=== PATIENT | female | born 1975 | race American Indian/Alaskan Native ===

== ENCOUNTER 2017-01-02 03:30 | Inpatient (IN) | payer MEDICAID ==
[2017-01-02 04:07] LABS: Basophils % (Auto) 0.7 % (0.0-1.8); Eosinophils % (Auto) 3.7 % (0.0-4.3); Hematocrit 37.4 % (30.3-42.9); Hemoglobin 12.3 gm/dl (10.1-14.3); Mean Corpuscular HGB Conc 33 % (30-34); Mean Corpuscular Hemoglobin 30 pg (28-32); Mean Corpuscular Volume 89 fl (79-97); Platelet Count 346 K/mm3 (140-440); Red Blood Count 4.18 M/mm3 (3.65-5.03); Red Cell Distribution Width 15.4 % (13.2-15.2); White Blood Count 8.7 K/mm3 (4.5-11.0)
[2017-01-02 04:42] LABS: Anion Gap 19 mmol/L; BUN/Creatinine Ratio 14; Blood Urea Nitrogen 7 mg/dL (7-17); Calcium 8.4 mg/dL (8.4-10.2); Carbon Dioxide 22 mmol/L (22-30); Chloride 102.3 mmol/L (98-107); Glucose 112 mg/dL (65-100); Potassium 3.7 mmol/L (3.6-5.0); Sodium 140 mmol/L (137-145)
[2017-01-02] MEDS ORDERED: DUONEB *Not for PRN Use IH ONE (04:48)
--- NOTE | 2017-01-02 04:54 | Emergency Department Report ---
ED Shortness of Breath HPI - General Chief Complaint: Adult Asthma Stated Complaint: DIFFICULTY IN BREATHING Time Seen by Provider: 01/02/17 04:52 Source: patient, EMS Mode of arrival: Stretcher Limitations: No Limitations - History of Present Illness MD Complaint: shortness of breath, "asthma attack" -: Sudden Severity: severe Consistency: constant Improves With: oxygen, rest, bronchodilators, upright position Worsens With: lying flat, coughing Known History Of: COPD, asthma Context: recent URI Associated Symptoms: cough Treatments Prior to Arrival: oxygen, bronchodilator, other (EMS gave mag run) - Related Data Home Oxygen Therapy: No Allergies Allergy/AdvReac Type Severity Reaction Status Date / Time No Known Allergies Allergy Verified 01/02/17 04:55 ED Review of Systems ROS: Stated complaint: DIFFICULTY IN BREATHING Other details as noted in HPI Constitutional: see HPI, weakness Eyes: as per HPI ENT: as per HPI Respiratory: see HPI, shortness of breath, SOB with exertion, SOB at rest, wheezing Cardiovascular: as per HPI Endocrine: no symptoms reported Gastrointestinal: as per HPI Genitourinary: as per HPI Musculoskeletal: as per HPI Skin: as per HPI Neurological: as per HPI Psychiatric: as per HPI Hematological/Lymphatic: as per HPI ED Past Medical Hx - Past Medical History Previous Medical History?: Yes Hx Psychiatric Treatment: Yes (depression) Hx Asthma: Yes - Surgical History Past Surgical History?: No - Social History Smoking Status: Never Smoker Substance Use Type: None ED Physical Exam - General Limitations: No Limitations General appearance: alert, in distress - Head Head exam: Present: atraumatic, normocephalic - Eye Eye exam: Present: normal appearance, PERRL, EOMI - ENT ENT exam: Present: mucous membranes moist - Neck Neck exam: Present: normal inspection - Respiratory Respiratory exam: Present: respiratory distress, wheezes, rhonchi - Cardiovascular Cardiovascular Exam: Present: regular rate, normal rhythm. Absent: systolic murmur, diastolic murmur, rubs, gallop - GI/Abdominal GI/Abdominal exam: Present: soft, normal bowel sounds - Extremities Exam Extremities exam: Present: normal inspection - Back Exam Back exam: Present: normal inspection - Neurological Exam Neurological exam: Present: alert, oriented X3 - Psychiatric Psychiatric exam: Present: normal affect, normal mood - Skin Skin exam: Present: warm, dry, intact, normal color. Absent: rash ED Course Vital Signs 01/02/17 01/02/17 01/02/17 04:23 04:30 04:41 Temperature 98.4 F Pulse Rate 83 77 Pulse Rate [ Anterior Bilateral Throughout] Respiratory 19 14 Rate Respiratory Rate [Anterior Bilateral Throughout] Blood Pressure 163/100 Blood Pressure 149/97 [Left] O2 Sat by Pulse 99 98 99 Oximetry 01/02/17 01/02/17 04:53 05:00 Temperature Pulse Rate 88 Pulse Rate [ 90 Anterior Bilateral Throughout] Respiratory 17 Rate Respiratory 14 Rate [Anterior Bilateral Throughout] Blood Pressure 159/91 Blood Pressure [Left] O2 Sat by Pulse 95 Oximetry ED Medical Decision Making - Lab Data Result diagrams: 01/02/17 03:52 01/02/17 03:52 - EKG Data -: EKG Interpreted by Me EKG shows normal: sinus rhythm Rate: normal - EKG Data Interpretation: no acute changes, normal EKG - Radiology Data Radiology results: image reviewed - Medical Decision Making Hospitalist consulted for admission. agreed to admit - Differential Diagnosis sob. acs. copd exac Critical Care Time: Yes Critical care attestation.: If time is entered above; I have spent that time in minutes in the direct care of this critically ill patient, excluding procedure time. Critical Care Time: 35 minutes spent with patient for critical care time ED Disposition Clinical Impression: Hypoxia, COPD exacerbation, Shortness of breath, Respiratory distress Disposition: OP ADMIT IP TO THIS HOSP Is pt being admited?: Yes Does the pt Need Aspirin: No Condition: Critical Time of Disposition: 06:06
[2017-01-02] MEDS ORDERED: ROCEPHIN/NS 1 GM/50 ML 1 GM/50 ML BAG IV ONE (05:29)
--- NOTE | 2017-01-02 06:05 | XRay Report ---
FINAL REPORT EXAM: XR CHEST ROUTINE 2V HISTORY: Shortness of breath TECHNIQUE: AP and lateral views of the chest were submitted. There are no previous studies available for comparison. FINDINGS: Heart size mediastinum appear normal. The lungs are clear. Pleural fluid is not seen. The bones and soft tissues do not show any acute changes. IMPRESSION: No active chest disease.
[2017-01-02] MEDS ORDERED: TYLENOL PO PRN (07:46)
[2017-01-02] MEDS ORDERED: PROVENTIL IH PRN (07:46)
[2017-01-02] MEDS ORDERED: MILK OF MAGNESIA PO PRN (07:46)
--- NOTE | 2017-01-02 07:54 | History and Physical Report ---
History of Present Illness Date of examination: 01/02/17 Date of admission: 01/02/17 Chief complaint: shortness of breath, wheezing for 1 week History of present illness: [place] 41-year-old with history of COPD asthma GERD. She presents with shortness of breath, wheezing and cough. She states she has been coughing and wheezing for about a week. Shortness of breath started 1 day ago. Cough is nonproductive. Wheezing was on exertion. Shortness of breath also was on exertion. She also complains of upper abdominal pain and nausea. She has history of GERD but is not on medications. In Emergency Department chest x-ray was unremarkable. She was diagnosed with COPD exacerbation given solu-medrol and will be admitted for further management. Past History Past Medical History: COPD, GERD, other (asthma) Past Surgical History: Social history: single, lives with family. denies: smoking (Quit smoking 1 month ago), alcohol abuse Family history: cancer Medications and Allergies Allergies Allergy/AdvReac Type Severity Reaction Status Date / Time No Known Allergies Allergy Verified 01/02/17 04:55 Home Medications Medication Instructions Recorded Confirmed Last Taken Type No Known Home Medications [No 01/03/17 01/03/17 Unknown History Reported Home Medications] Active Meds: Active Medications Acetaminophen (Tylenol) 650 mg PO Q4H PRN PRN Reason: Pain MILD(1-3)/Fever >100.5/IYER Albuterol (Proventil) 2.5 mg IH Q3HRT PRN PRN Reason: Shortness Of Breath Albuterol/Ipratropium (Duoneb *Not For Prn Use*) 1 ampul IH Q6HRT SADE Bisacodyl (Dulcolax) 10 mg [place] QDAY PRN PRN Reason: Constipation unrelieved by MOM Heparin Sodium (Porcine) (Heparin) 5,000 unit SUB-Q Q8HR SADE Magnesium Hydroxide (Milk Of Magnesia) 30 ml PO Q4H PRN PRN Reason: Constipation Methylprednisolone Sodium Succinate (Solu-Medrol) 60 mg IV Q8HR SADE Morphine Sulfate (Morphine) 2 mg IV Q4H PRN PRN Reason: Pain, Moderate (4-6) Ondansetron HCl (Zofran) 4 mg IV Q6H PRN PRN Reason: nausea or vomiting Exam - Physical Exam Narrative exam: GEN APPEARANCE : Not in acute distress, obese, HEENT: Normocephalic Atraumatic NECK : supple, no JVD LUNGS: Bilateral rhonchi, wheeze HEART: S1 and S2 regular, tachycardia, no murmurs, rubs or gallop, ABD: Soft, no tenderness, no distension, normal bowel sounds EXT: No edema, no clubbing, no cyanosis NEURO: Awake,alert,oriented x 3, no facial asymmetry, no focal signs - Constitutional Vitals: Temp Pulse Resp BP Pulse Ox 98.4 F 82 14 152/93 98 01/02/17 04:23 01/02/17 06:31 01/02/17 06:31 01/02/17 06:31 01/02/17 06:31 Results - Labs CBC & Chem 7: 01/04/17 04:55 01/03/17 04:59 Labs: Abnormal lab results 01/02/17 01/02/17 Range/Units 03:52 03:52 RDW 15.4 H (13.2-15.2) % [place] % (Auto) 8.8 H (0.0-7.3) % Creatinine 0.5 L (0.7-1.2) mg/dL Glucose 112 H (65-100) mg/dL Assessment and Plan COPD exacerbation. Admit to med/surg GERD. Protonix
[2017-01-02] MEDS: DUONEB *Not for PRN Use IH SCH ×3 (08:23→19:58)
[2017-01-02] MEDS: ZITHROMAX 500 MG in NACL 0.9% 250ML 250 ML IV SCH ×2 (08:40→12:36)
[2017-01-02] MEDS ORDERED: MORPHINE ONE (09:41)
[2017-01-02] MEDS: MORPHINE IV PRN ×2 (09:44→19:11)
[2017-01-02] MEDS ORDERED: PROTONIX IV SCH (10:00)
[2017-01-02] MEDS ORDERED: DULCOLAX PR PRN (10:00)
[2017-01-02] MEDS: HEPARIN SUB-Q SCH ×2 (15:04→22:04)
[2017-01-02] MEDS: ZOFRAN IV PRN (15:15)
[2017-01-02] MEDS: HABITROL TD SCH (22:04)
[2017-01-03] MEDS: DUONEB *Not for PRN Use IH SCH ×4 (02:14→20:02)
[2017-01-03 05:40] LABS: Hematocrit 37.1 % (30.3-42.9); Hemoglobin 11.9 gm/dl (10.1-14.3); Mean Corpuscular HGB Conc 32 % (30-34); Mean Corpuscular Hemoglobin 29 pg (28-32); Mean Corpuscular Volume 89 fl (79-97); Platelet Count 369 K/mm3 (140-440); Red Blood Count 4.15 M/mm3 (3.65-5.03); Red Cell Distribution Width 15.2 % (13.2-15.2); White Blood Count 18.6 K/mm3 (4.5-11.0)
[2017-01-03 05:47] LABS: Anion Gap 17 mmol/L; BUN/Creatinine Ratio 12; Blood Urea Nitrogen 6 mg/dL (7-17); Calcium 8.7 mg/dL (8.4-10.2); Carbon Dioxide 25 mmol/L (22-30); Chloride 102.3 mmol/L (98-107); Glucose 129 mg/dL (65-100); Potassium 4.3 mmol/L (3.6-5.0); Sodium 140 mmol/L (137-145)
[2017-01-03] MEDS: HEPARIN SUB-Q SCH ×3 (06:25→21:50)
[2017-01-03] MEDS: MORPHINE IV PRN ×3 (06:31→18:26)
[2017-01-03 07:39] LABS: Basophils % (Manual) 0 % (0.0-1.8); Blastocytes % (Manual) 0 %; Eosinophils % (Manual) 0 % (0.0-4.3)
[2017-01-03 07:40] LABS: Anisocytosis 1+; Diff Status Complete; Hypochromasia 1+; Large Platelets Few
[2017-01-03] MEDS: HABITROL TD SCH (09:39)
[2017-01-03] MEDS: PROTONIX PO SCH (09:40)
[2017-01-03] MEDS: ZITHROMAX 500 MG in NACL 0.9% 250ML 250 ML IV SCH (10:29)
[2017-01-03] MEDS ORDERED: Fluarix Quad 2017-2018(36 MOS+ IM ONE (12:00)
[2017-01-03] MEDS ORDERED: PNEUMOVAX 23 IM ONE (12:00)
--- NOTE | 2017-01-03 14:51 | Progress Note ---
Hospitalist Physical - Constitutional Vitals: Temp Pulse Resp BP Pulse Ox 98.0 F 92 H 16 130/85 98 01/03/17 08:10 01/03/17 13:22 01/03/17 13:22 01/03/17 08:10 01/03/17 08:10 Results - Labs CBC & Chem 7: 01/03/17 04:59 01/03/17 04:59 Labs: Laboratory Last Values WBC 18.6 K/mm3 (4.5-11.0) H 01/03/17 04:59 RBC 4.15 M/mm3 (3.65-5.03) 01/03/17 04:59 Hgb 11.9 gm/dl (10.1-14.3) 01/03/17 04:59 Hct 37.1 % (30.3-42.9) 01/03/17 04:59 MCV 89 fl (79-97) 01/03/17 04:59 MCH 29 pg (28-32) 01/03/17 04:59 MCHC 32 % (30-34) 01/03/17 04:59 RDW 15.2 % (13.2-15.2) 01/03/17 04:59 Plt Count 369 K/mm3 (140-440) 01/03/17 04:59 Lymph % (Auto) 30.4 % (13.4-35.0) 01/02/17 03:52 [place] % (Auto) 8.8 % (0.0-7.3) H 01/02/17 03:52 Eos % (Auto) 3.7 % (0.0-4.3) 01/02/17 03:52 Baso % (Auto) 0.7 % (0.0-1.8) 01/02/17 03:52 Lymph # 2.6 K/mm3 (1.2-5.4) 01/02/17 03:52 [place] # 0.8 K/mm3 (0.0-0.8) 01/02/17 03:52 Eos # 0.3 K/mm3 (0.0-0.4) 01/02/17 03:52 Baso # 0.1 K/mm3 (0.0-0.1) 01/02/17 03:52 Add Manual Diff Complete 01/03/17 04:59 Total Counted 100 01/03/17 04:59 Seg Neutrophils % Advertising Account Representative 01/03/17 04:59 Seg Neuts % (Manual) 71.0 % (40.0-70.0) H 01/03/17 04:59 Band Neutrophils % 15.0 % 01/03/17 04:59 Lymphocytes % (Manual) 10.0 % (13.4-35.0) L 01/03/17 04:59 Reactive Lymphs % (Man) 0 % 01/03/17 04:59 Monocytes % (Manual) 4.0 % (0.0-7.3) 01/03/17 04:59 Eosinophils % (Manual) 0 % (0.0-4.3) 01/03/17 04:59 Basophils % (Manual) 0 % (0.0-1.8) 01/03/17 04:59 Metamyelocytes % 0 % 01/03/17 04:59 Myelocytes % 0 % 01/03/17 04:59 Promyelocytes % 0 % 01/03/17 04:59 Blast Cells % 0 % 01/03/17 04:59 Nucleated RBC % Not Reportable 01/03/17 04:59 Seg Neutrophils # 4.9 K/mm3 (1.8-7.7) 01/02/17 03:52 Seg Neutrophils # Man 13.2 K/mm3 (1.8-7.7) H 01/03/17 04:59 Band Neutrophils # 2.8 K/mm3 01/03/17 04:59 Lymphocytes # (Manual) 1.9 K/mm3 (1.2-5.4) 01/03/17 04:59 Abs React Lymphs (Man) 0.0 K/mm3 01/03/17 04:59 Monocytes # (Manual) 0.7 K/mm3 (0.0-0.8) 01/03/17 04:59 Eosinophils # (Manual) 0.0 K/mm3 (0.0-0.4) 01/03/17 04:59 Basophils # (Manual) 0.0 K/mm3 (0.0-0.1) 01/03/17 04:59 Metamyelocytes # 0.0 K/mm3 01/03/17 04:59 Myelocytes # 0.0 K/mm3 01/03/17 04:59 Promyelocytes # 0.0 K/mm3 01/03/17 04:59 Blast Cells # 0.0 K/mm3 01/03/17 04:59 WBC Morphology Not Reportable 01/03/17 04:59 Hypersegmented Neuts Not Reportable 01/03/17 04:59 Hyposegmented Neuts Not Reportable 01/03/17 04:59 Hypogranular Neuts Not Reportable 01/03/17 04:59 Smudge Cells Not Reportable 01/03/17 04:59 Toxic Granulation Not Reportable 01/03/17 04:59 Toxic Vacuolation Not Reportable 01/03/17 04:59 Dohle Bodies Not Reportable 01/03/17 04:59 Pelger-Huet Anomaly Not Reportable 01/03/17 04:59 Poly Rods Not Reportable 01/03/17 04:59 Platelet Estimate Appears normal 01/03/17 04:59 Clumped Platelets Not Reportable 01/03/17 04:59 Plt Clumps, EDTA Not Reportable 01/03/17 04:59 Large Platelets Few 01/03/17 04:59 Giant Platelets Not Reportable 01/03/17 04:59 Platelet Satelliting Not Reportable 01/03/17 04:59 Plt Morphology Comment Not Reportable 01/03/17 04:59 RBC Morphology Not Reportable 01/03/17 04:59 Dimorphic RBCs Not Reportable 01/03/17 04:59 Polychromasia Not Reportable 01/03/17 04:59 Hypochromasia 1+ 01/03/17 04:59 Poikilocytosis Not Reportable 01/03/17 04:59 Anisocytosis 1+ 01/03/17 04:59 Microcytosis Not Reportable 01/03/17 04:59 Macrocytosis Not Reportable 01/03/17 04:59 Spherocytes Not Reportable 01/03/17 04:59 Pappenheimer Bodies Not Reportable 01/03/17 04:59 Sickle Cells Not Reportable 01/03/17 04:59 Target Cells Not Reportable 01/03/17 04:59 Tear Drop Cells Not Reportable 01/03/17 04:59 Ovalocytes Not Reportable 01/03/17 04:59 Helmet Cells Not Reportable 01/03/17 04:59 [place] Bodies Not Reportable 01/03/17 04:59 [place] Rings Not Reportable 01/03/17 04:59 Juli Cells Not Reportable 01/03/17 04:59 Bite Cells Not Reportable 01/03/17 04:59 Crenated Cell Not Reportable 01/03/17 04:59 Elliptocytes Not Reportable 01/03/17 04:59 Acanthocytes (Spur) Not Reportable 01/03/17 04:59 Rouleaux Not Reportable 01/03/17 04:59 Hemoglobin C Crystals Not Reportable 01/03/17 04:59 Schistocytes Not Reportable 01/03/17 04:59 Malaria parasites Not Reportable 01/03/17 04:59 Steve Bodies Not Reportable 01/03/17 04:59 Hem Pathologist Commnt No 01/03/17 04:59 D-Dimer 201.11 ng/mlDDU (0-234) 01/02/17 07:41 Sodium 140 mmol/L (137-145) 01/03/17 04:59 Potassium 4.3 mmol/L (3.6-5.0) 01/03/17 04:59 Chloride 102.3 mmol/L (98-107) 01/03/17 04:59 Carbon Dioxide 25 mmol/L (22-30) 01/03/17 04:59 Anion Gap 17 mmol/L 01/03/17 04:59 BUN 6 mg/dL (7-17) L 01/03/17 04:59 Creatinine 0.5 mg/dL (0.7-1.2) L 01/03/17 04:59 Estimated GFR > 60 ml/min 01/03/17 04:59 BUN/Creatinine Ratio 12 % 01/03/17 04:59 Glucose 129 mg/dL (65-100) H 01/03/17 04:59 Calcium 8.7 mg/dL (8.4-10.2) 01/03/17 04:59 CK-MB (CK-2) 3.0 ng/mL (0.0-4.0) 01/02/17 04:28 Troponin T < 0.010 ng/mL (0.00-0.029) 01/02/17 03:52 Urine HCG, Qual Negative (Negative) 01/02/17 05:10
[2017-01-03] MEDS: ZOFRAN IV PRN (18:30)
[2017-01-04] MEDS: DUONEB *Not for PRN Use IH SCH ×4 (03:12→20:30)
[2017-01-04] MEDS: HEPARIN SUB-Q SCH ×3 (05:32→21:45)
[2017-01-04] MEDS: MORPHINE IV PRN ×3 (05:32→22:25)
[2017-01-04 05:37] LABS: Mean Corpuscular HGB Conc 31 % (30-34); Mean Corpuscular Hemoglobin 28 pg (28-32); Mean Corpuscular Volume 90 fl (79-97); Platelet Count 366 K/mm3 (140-440); Red Blood Count 4.43 M/mm3 (3.65-5.03); Red Cell Distribution Width 15.4 % (13.2-15.2); White Blood Count 18.3 K/mm3 (4.5-11.0)
[2017-01-04 05:44] LABS: Hematocrit 39.8 % (30.3-42.9); Hemoglobin 12.2 gm/dl (10.1-14.3)
[2017-01-04] MEDS: ZOFRAN IV PRN (08:14)
[2017-01-04] MEDS: ZITHROMAX PO SCH (09:26)
[2017-01-04] MEDS: HABITROL TD SCH (09:27)
[2017-01-04] MEDS: PROTONIX PO SCH (09:27)
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
[2017-01-04] MEDS ORDERED: REMERON PO SCH (22:00)
--- NOTE | 2017-01-04 22:46 | Progress Note ---
Hospitalist Physical - Constitutional Vitals: Temp Pulse Resp BP Pulse Ox 98.4 F 80 20 118/77 98 01/04/17 15:51 01/04/17 22:00 01/04/17 22:00 01/04/17 15:51 01/04/17 22:00 Results - Labs CBC & Chem 7: 01/04/17 04:55 01/03/17 04:59 Labs: Laboratory Last Values WBC 18.3 K/mm3 (4.5-11.0) H 01/04/17 04:55 RBC 4.43 M/mm3 (3.65-5.03) 01/04/17 04:55 Hgb 12.2 gm/dl (10.1-14.3) 01/04/17 04:55 Hct 39.8 % (30.3-42.9) 01/04/17 04:55 MCV 90 fl (79-97) 01/04/17 04:55 MCH 28 pg (28-32) 01/04/17 04:55 MCHC 31 % (30-34) 01/04/17 04:55 RDW 15.4 % (13.2-15.2) H 01/04/17 04:55 Plt Count 366 K/mm3 (140-440) 01/04/17 04:55 Lymph % (Auto) 30.4 % (13.4-35.0) 01/02/17 03:52 [place] % (Auto) 8.8 % (0.0-7.3) H 01/02/17 03:52 Eos % (Auto) 3.7 % (0.0-4.3) 01/02/17 03:52 Baso % (Auto) 0.7 % (0.0-1.8) 01/02/17 03:52 Lymph # 2.6 K/mm3 (1.2-5.4) 01/02/17 03:52 [place] # 0.8 K/mm3 (0.0-0.8) 01/02/17 03:52 Eos # 0.3 K/mm3 (0.0-0.4) 01/02/17 03:52 Baso # 0.1 K/mm3 (0.0-0.1) 01/02/17 03:52 Add Manual Diff Complete 01/03/17 04:59 Total Counted 100 01/03/17 04:59 Seg Neutrophils % Block [place] 01/03/17 04:59 Seg Neuts % (Manual) 71.0 % (40.0-70.0) H 01/03/17 04:59 Band Neutrophils % 15.0 % 01/03/17 04:59 Lymphocytes % (Manual) 10.0 % (13.4-35.0) L 01/03/17 04:59 Reactive Lymphs % (Man) 0 % 01/03/17 04:59 Monocytes % (Manual) 4.0 % (0.0-7.3) 01/03/17 04:59 Eosinophils % (Manual) 0 % (0.0-4.3) 01/03/17 04:59 Basophils % (Manual) 0 % (0.0-1.8) 01/03/17 04:59 Metamyelocytes % 0 % 01/03/17 04:59 Myelocytes % 0 % 01/03/17 04:59 Promyelocytes % 0 % 01/03/17 04:59 Blast Cells % 0 % 01/03/17 04:59 Nucleated RBC % Not Reportable 01/03/17 04:59 Seg Neutrophils # 4.9 K/mm3 (1.8-7.7) 01/02/17 03:52 Seg Neutrophils # Man 13.2 K/mm3 (1.8-7.7) H 01/03/17 04:59 Band Neutrophils # 2.8 K/mm3 01/03/17 04:59 Lymphocytes # (Manual) 1.9 K/mm3 (1.2-5.4) 01/03/17 04:59 Abs React Lymphs (Man) 0.0 K/mm3 01/03/17 04:59 Monocytes # (Manual) 0.7 K/mm3 (0.0-0.8) 01/03/17 04:59 Eosinophils # (Manual) 0.0 K/mm3 (0.0-0.4) 01/03/17 04:59 Basophils # (Manual) 0.0 K/mm3 (0.0-0.1) 01/03/17 04:59 Metamyelocytes # 0.0 K/mm3 01/03/17 04:59 Myelocytes # 0.0 K/mm3 01/03/17 04:59 Promyelocytes # 0.0 K/mm3 01/03/17 04:59 Blast Cells # 0.0 K/mm3 01/03/17 04:59 WBC Morphology Not Reportable 01/03/17 04:59 Hypersegmented Neuts Not Reportable 01/03/17 04:59 Hyposegmented Neuts Not Reportable 01/03/17 04:59 Hypogranular Neuts Not Reportable 01/03/17 04:59 Smudge Cells Not Reportable 01/03/17 04:59 Toxic Granulation Not Reportable 01/03/17 04:59 Toxic Vacuolation Not Reportable 01/03/17 04:59 Dohle Bodies Not Reportable 01/03/17 04:59 Pelger-Huet Anomaly Not Reportable 01/03/17 04:59 Poly Rods Not Reportable 01/03/17 04:59 Platelet Estimate Appears normal 01/03/17 04:59 Clumped Platelets Not Reportable 01/03/17 04:59 Plt Clumps, EDTA Not Reportable 01/03/17 04:59 Large Platelets Few 01/03/17 04:59 Giant Platelets Not Reportable 01/03/17 04:59 Platelet Satelliting Not Reportable 01/03/17 04:59 Plt Morphology Comment Not Reportable 01/03/17 04:59 RBC Morphology Not Reportable 01/03/17 04:59 Dimorphic RBCs Not Reportable 01/03/17 04:59 Polychromasia Not Reportable 01/03/17 04:59 Hypochromasia 1+ 01/03/17 04:59 Poikilocytosis Not Reportable 01/03/17 04:59 Anisocytosis 1+ 01/03/17 04:59 Microcytosis Not Reportable 01/03/17 04:59 Macrocytosis Not Reportable 01/03/17 04:59 Spherocytes Not Reportable 01/03/17 04:59 Pappenheimer Bodies Not Reportable 01/03/17 04:59 Sickle Cells Not Reportable 01/03/17 04:59 Target Cells Not Reportable 01/03/17 04:59 Tear Drop Cells Not Reportable 01/03/17 04:59 Ovalocytes Not Reportable 01/03/17 04:59 Helmet Cells Not Reportable 01/03/17 04:59 [place] Bodies Not Reportable 01/03/17 04:59 [place] Rings Not Reportable 01/03/17 04:59 Juli Cells Not Reportable 01/03/17 04:59 Bite Cells Not Reportable 01/03/17 04:59 Crenated Cell Not Reportable 01/03/17 04:59 Elliptocytes Not Reportable 01/03/17 04:59 Acanthocytes (Spur) Not Reportable 01/03/17 04:59 Rouleaux Not Reportable 01/03/17 04:59 Hemoglobin C Crystals Not Reportable 01/03/17 04:59 Schistocytes Not Reportable 01/03/17 04:59 Malaria parasites Not Reportable 01/03/17 04:59 Steve Bodies Not Reportable 01/03/17 04:59 Hem Pathologist Commnt No 01/03/17 04:59 D-Dimer 201.11 ng/mlDDU (0-234) 01/02/17 07:41 Sodium 140 mmol/L (137-145) 01/03/17 04:59 Potassium 4.3 mmol/L (3.6-5.0) 01/03/17 04:59 Chloride 102.3 mmol/L (98-107) 01/03/17 04:59 Carbon Dioxide 25 mmol/L (22-30) 01/03/17 04:59 Anion Gap 17 mmol/L 01/03/17 04:59 BUN 6 mg/dL (7-17) L 01/03/17 04:59 Creatinine 0.5 mg/dL (0.7-1.2) L 01/03/17 04:59 Estimated GFR > 60 ml/min 01/03/17 04:59 BUN/Creatinine Ratio 12 % 01/03/17 04:59 Glucose 129 mg/dL (65-100) H 01/03/17 04:59 Calcium 8.7 mg/dL (8.4-10.2) 01/03/17 04:59 CK-MB (CK-2) 3.0 ng/mL (0.0-4.0) 01/02/17 04:28 Troponin T < 0.010 ng/mL (0.00-0.029) 01/02/17 03:52 Urine HCG, Qual Negative (Negative) 01/02/17 05:10
[2017-01-05] MEDS: DUONEB *Not for PRN Use IH SCH ×4 (02:38→19:34)
[2017-01-05] MEDS: HEPARIN SUB-Q SCH ×2 (05:56→14:45)
[2017-01-05] MEDS: ZOFRAN IV PRN (08:33)
--- NOTE | 2017-01-05 10:41 | Discharge Summary ---
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 2.Folow up with [facility] in 1 week Follow up with: PRIMARY CARE, [Primary Care Provider] - 3-5 Days Prescriptions: Albuterol Sulfate [Ventolin HFA] 2 puff IH Q4H PRN #1 pump PRN Reason: Shortness Of Breath Azithromycin [Zithromax] 250 mg PO DAILY #3 tablet Famotidine [Pepcid] 20 mg PO BID #60 tablet Mirtazapine [Remeron] 15 mg PO QHS #15 tablet Prednisone [predniSONE 5 mg (6-Day Pack, 21 Tabs)] 5 mg PO .TAPER #1 tab.ds.pk
[2017-01-05] MEDS: HABITROL TD SCH (10:58)
[2017-01-05] MEDS: PROTONIX PO SCH (10:58)
[2017-01-05] MEDS: ZITHROMAX PO SCH (10:58)
--- NOTE | 2017-01-05 10:59 | Progress Note ---
Subjective - Reason for Consult Consult date: 01/05/17 Reason for consult: Psychiatry Follow-up - Chief Complaint Chief complaint: "I feel much better" 41 year old AA female admitted for difficulty in breathing. She has asthma and COPD. She reports feeling anxiety and depressed for several months. Today patient is calm and cooperative during the assessment. She stated that she want help for her depression and look forward to outpatient psy services once discharged. She denies SI/HI's and AVH's. She denies any side effects of her medication. Mental Status Exam - Vital signs Last Vital Signs Temp 98.5 F 01/05/17 08:04 Pulse 103 H 01/05/17 09:21 Resp 18 01/05/17 09:21 BP 125/81 01/05/17 08:04 Pulse Ox 96 01/05/17 09:09 - Exam Narrative exam: MSE: Appearance: calm, cooperative Behavior: regular eye contact Speech: regular rate of tone Mood: "okay" Affect: congruent to mood Thought Process: linear Thought Content: denies SI/HI's and AVH's Motor Activity: sitting up in bed Cognition: A/O x3 Insight: appropriate Judgment: appropriate Assessment and Plan Impression: MDD. PTSD. Remote history of substance use disorder (cocaine). Today patient is calm and cooperative during the assessment. Recommendation: Continue Remeron 15 mg PO HS for depression/PTSD. Discussed possible suicidality/medication induced sarath with patient reference Remeron. Patient given outpatient psy services for [facility]. [employer] involvement patient is homeless, recommend a women's residential.
[2017-01-05 11:35] LABS: Bilirubin,Urine NEG (Negative); Blood,Urine NEG (Negative); Ketones,Urine NEG (Negative); Leukocyte Esterase,Urine NEG (Negative); Mucus,Urine FEW /HPF; Nitrite,Urine NEG (Negative); Protein,Urine <15 mg/dL mg/dL (Negative); Urobilinogen,Urine < 2.0 mg/dL (<2.0)
--- NOTE | 2017-01-05 12:36 | Query- Dyspnea ---
Estephania Morrissey____Daniel Date:___01/05/2017 Service Desk Associate/CDS:__Laura Phone#:___[phone] Exercise your independent professional judgment when responding to query. Questions asked do not imply a particular answer is desired or expected. We greatly appreciate your clarification on this issue. Clinical Documentation States: 41 Year old female was admitted on 01/02/2017 with shortness of breath, wheezing and cough. The IM H&P (Dr. Sanchez) note states " Assessment and Plan COPD exacerbation." Clinical Findings Show: RR: 27 FL: 111 Oxygen Delivery method: Nasal Cannula Oxygen flow rate: 3L/min Breath Sounds: Wheezes Please clarify if the patient had any of the following conditions based on the above clinical findings: [ x] Respiratory Failure [ x] Acute [ ] Acute on Chronic [ ] Chronic [ ] Respiratory failure due to trauma [ ] Acute Respiratory Distress Syndrome [ ] Other: [ ] Unable to determine [ ] Comment/Explanation: Present on Admission: [ x] Yes (Y) [ ] Clinically undeterminable (W) [ ] No (N) Please also document response in your Progress Notes and/or Discharge Summary and indicate if the condition was present on admission. [id number]
[2017-01-05 14:14] VITALS: BP 115/70
[2017-01-05] MEDS: MORPHINE IV PRN (14:52)
== END 2017-01-05 22:08 | disposition home or self-care (01) | DRG 191 ==
LOC: ED 03:30 → 3A 07:46
PROVIDERS: ADMIT Internal Medicine; ATTEND Internal Medicine
PROC: 3E0234Z Introduction of Serum, Toxoid and Vaccine into Muscle, Percutaneous Approach (ICD-10-PCS; principal; 2017-01-03)
DX: J44.1 Chronic obstructive pulmonary disease with (acute) exacerbation (principal); F33.9 Major depressive disorder, recurrent, unspecified; K21.9 Gastro-esophageal reflux disease without esophagitis; F43.10 Post-traumatic stress disorder, unspecified; F41.0 Panic disorder [episodic paroxysmal anxiety]; Z80.9 Family history of malignant neoplasm, unspecified; Z87.891 Personal history of nicotine dependence; Z23 Encounter for immunization; Z79.899 Other long term (current) drug therapy; R06.03 Acute respiratory distress; R09.02 Hypoxemia
CPT/HCPCS: 36415; 71020; 80048; 81001; 81025; 82553; 84484; 85007; 85025; 85027; 85379; 90686; 90732; 93005; 93010; 94640; 94760; 96365; 99291; C9113; J0456; J0696; J1644; J2270; J2405; J2930; J7050